=== PATIENT | male | born 1950 | race Caucasian/White ===

== ENCOUNTER → 2020-01-14 | Outpatient (CLI) | payer MEDICARE ==
--- NOTE | 2020-01-14 12:24 | RADIOLOGY REPORT (SQ) ---
EXAM DESCRIPTION: VENOUS UNILATERAL LOWER IMAGES COMPLETED DATE/TIME: 01/14/2020 12:14 pm REASON FOR STUDY: LLE PAIN M79.605 PAIN IN LEFT LEG COMPARISON: None. TECHNIQUE: Dynamic and static gaffney scale and color images acquired of the left leg venous system. Se lected spectral images acquired with additional compression and augmentation maneuvers. The contralat eral common femoral vein and saphenofemoral junction were also imaged. Images stored on PACS. LIMITATIONS: None. FINDINGS: COMMON FEMORAL: Normal phasicity, compression and augmentation. No visualized echogenic ma terial on gaffney scale. No defects on color images. FEMORAL: Normal compression and augmentation. No visualized echogenic material on gaffney scale. No defe cts on color images. POPLITEAL: Normal compression, augmentation. No visualized echogenic material on gaffney scale. No defec ts on color images. CALF VESSELS: Normal compression, augmentation. No visualized echogenic material on gaffney scale. No de fects on color images. GSV and SSV: Normal compression, augmentation. No visualized echogenic material on gaffney scale. No def ects on color images. ANY DEEP VENOUS INSUFFICIENCY: Yes. ANY EVIDENCE OF POPLITEAL CYST: No. OTHER: Complex hypoechoic collection at the anterior aspect of the ankle. This measures 5.0 x 1.8 x 3.4 cm. Possibly hematoma. The area is nonvascular. CONTRALATERAL COMMON FEMORAL VEIN AND SAPHENOFEMORAL JUNCTION: Normal phasicity, compression and augmentation. No visualized echogenic material on gaffney scale. No de fects on color images. IMPRESSION: 1. No evidence of DVT or SVT in the left lower extremity. 2. Complex 5.0 x 1.8 x 3.4 cm fluid collection anterior to the left ankle most likely representing p ost traumatic hematoma. TECHNICAL DOCUMENTATION: JOB ID: [id number] 2010 [email or web address]- All Rights Reserved Reading location - IP/workstation name: [email or web address]
== END ==
LOC: SP 11:03
PROVIDERS: ATTEND Registered Nurse
DX: M79.605 Pain in left leg (principal)
CPT/HCPCS: 93971

== ENCOUNTER 2020-02-21 14:02 | Emergency (ER) | payer MEDICARE ==
[2020-02-21] MEDS ORDERED: LIDOCAINE 1% INJ-PF (10 MG/ML) 30 ML SDV INJ ONE (14:16)
[2020-02-21] MEDS ORDERED: DIPH/PERTUSS(ACELL)/TETANUS VAC/PF 0.5 ML SYR (>=10YO) IM ONE (14:32)
[2020-02-21] MEDS ORDERED: LIDOCAINE 1%/EPINEPHRINE INJ 20 ML VIAL ONE (14:58)
--- NOTE | 2020-02-21 15:36 | ER Document Report ---
HPI - HPI Time Seen by Provider: 02/21/20 14:12 Pain Level: 2 Context: Patient is a 69-year-old male presents emergency department with lacerations to his right side of his face. Patient states that he was outside raking leaves and he went to go put something in the trash can and the lid of the trash can hit his face. Patient denies any loss of consciousness. Denies any dizziness. - ROS Systems Reviewed and Negative: Yes All other systems reviewed and negative - NEURO Neurology: DENIES: Headache, Weakness, Vision blurred, Dizzinesss / Vertigo - MUSCULOSKELETAL Musculoskeletal: DENIES: Extremity pain, Swelling - DERM Skin Color: Normal Skin Problems: Laceration - See HPI. Past Medical History - General Information source: Patient - Social History Smoking Status: Former Smoker Family History: Reviewed & Not Pertinent - Past Medical History Cardiac Medical History: Reports: Hx Hypercholesterolemia, Hx Hypertension GI Medical History: Reports: Hx Gastroesophageal Reflux Disease Past Surgical History: Reports: Hx Abdominal Surgery Vertical Provider Document - CONSTITUTIONAL Agree With Documented VS: Yes Exam Limitations: No Limitations General Appearance: No Apparent Distress - HEENT HEENT: Normocephalic, PERRLA. negative: Atraumatic - Laceration to eyebrow and right cheek. See procedure note - NECK Neck: Normal Inspection - RESPIRATORY Respiratory: No Respiratory Distress - CARDIOVASCULAR Cardiovascular: Regular Rate, Regular Rhythm Pulses: Normal: Radial - MUSCULOSKELETAL/EXTREMETIES Musculoskeletal/Extremeties: FROM - NEURO Level of Consciousness: Awake, Alert, Appropriate Motor/Sensory: No Motor Deficit, No Sensory Deficit - DERM Integumentary: Warm, Dry, No Rash, Laceration - See procedure note Course - Re-evaluation Re-evalutation: 02/21/20 15:32 Patient was anesthetized with 1% lidocaine, but patient ended up having an mayra rial bleed to his right cheek when his wound was cleansed. I then had to use lidocaine with epinephrine to help with bleeding control. Laceration was then repaired. See procedure note patient will follow up with his primary care provider. We will put him on a short course of antibiotics. He received his tetanus vaccine here in the emergency department. Follow-up precautions were given. Verbal discharge instructions were given to the patient. They verbalized understanding. They are stable for discharge. - Vital Signs Vital signs: Temp Pulse Resp BP Pulse Ox 98.7 F 90 18 147/76 H 97 02/21/20 14:12 02/21/20 14:12 02/21/20 14:12 02/21/20 14:12 02/21/20 14:12 Procedures - Laceration/Wound Repair Right eyebrow Wound length (cm): 6 Wound's Depth, Shape: Superficial, Linear Laceration pre-procedure: Sterile PPE donned Anesthetic type: 1% Lidocaine - and Lidocaine w/epi Volume Anesthetic (mLs): 2 Wound explored: Clean, No foreign body removed Irrigated w/ Saline (mLs): 100 Wound Repaired With: Sutures Suture Size/Type: 5:0, Prolene Number of Sutures: 3 Post-procedure wound care: Sterile dressing applied, Splint applied Post-procedure NV exam normal: Yes Complications: No Adult Head Front/Back picture: 1 - Laceration Right cheek Wound length (cm): 6 Wound's Depth, Shape: Flap Laceration pre-procedure: Sterile PPE donned Anesthetic type: 1% Lidocaine - and Lidocaine Volume Anesthetic (mLs): 6 Wound explored: Clean, No foreign body removed Irrigated w/ Saline (mLs): 100 Wound Repaired With: Sutures Suture Size/Type: 6:0, Prolene Number of Sutures: 7 Post-procedure wound care: Sterile dressing applied Post-procedure NV exam normal: Yes Complications: No Adult Head Front/Back picture: 1 - Flap laceration Discharge - Discharge Clinical Impression: Face lacerations Qualifiers: Encounter type: initial encounter Qualified Code(s): S01.81XA - Laceration without foreign body of other part of head, initial encounter Condition: Stable Disposition: HOME, SELF-CARE Instructions: Antibiotic Ointment Protection ([facility]), Laceration Care ([facility]), Prophylactic Antibiotic ([facility]), Soap Cleansing ([facility]), Tetanus Immunization Given ([facility]) Additional Instructions: Please return to your primary doctor, the ED, or an urgent care in 5 days for suture removal. Return immediately if you develop spreading redness around the wound, pus from the wound, worsening pain, or a fever of >100.4. Keep the area clean and dry. Wash gently with soap and water twice daily and cover with antibiotic ointment. Please apply ice to your face to help with swelling and bruising. Prescriptions: Cephalexin Monohydrate [Keflex 500 mg Capsule] 500 mg PO Q6H 5 Days #20 capsule Referrals: DIXIE DAVID MD [Primary Care Provider] - 02/26/20
[2020-02-21] MEDS ORDERED: LIDOCAINE 1%/EPINEPHRINE INJ 20 ML VIAL INJ ONE (16:02)
[2020-02-21 16:11] VITALS: BP 135/74
== END 2020-02-21 16:11 | disposition home or self-care (01) ==
LOC: ER 14:02
DX: S01.411A Laceration without foreign body of right cheek and temporomandibular area, initial encounter (principal); S01.111A Laceration without foreign body of right eyelid and periocular area, initial encounter; W22.8XXA Striking against or struck by other objects, initial encounter; Y92.007 Garden or yard of unspecified non-institutional (private) residence as the place of occurrence of the external cause; E78.00 Pure hypercholesterolemia, unspecified; I10 Essential (primary) hypertension; Z23 Encounter for immunization
CPT/HCPCS: 99283; 90471; 90715; 12015; J3490 ×2